=== PATIENT | male | born 1955 | race Caucasian/White ===

== ENCOUNTER 2023-03-22 06:00 | Observation (INO) | payer OTHER ==
[2023-03-22] VITALS (7 sets, daily range): BP systolic 100–135; BP diastolic 55–81; PULSE 59–74; TEMP 97.4–98
[~2023-03-22] VITALS: Ht 177.8 cm; Wt 111.3 kg
--- NOTE | 2023-03-22 09:50 | NUR ---
PT ADMITTED FROM ED FOR SYNCOPE AND AFIB. PT CONVERTED TO SR IN ED. PT IS AXOX3. PT IS ON RA. PT'S VSS. PT SHOWING SR IN THE 70S ON TELE. PT ORIENTED TO ROOM AND FLOOR. CALL LIGHT GIVEN AND ISNTRUCTED TO CALL WITH ALL NEEDS. 1015-CT ORDERED PER DUE TO ELEVATED D-DIMER. CARDIOLOGY CONSULTED. NOTIFIED. CT CALLED. 1100-FAMILY BEDSIDE. TO TAKE PTS MEDICATIONS HOME.
[2023-03-22] MEDS ORDERED: FLOMAX 0.40.4 MG/CAP PO (10:53)
[2023-03-22] MEDS ORDERED: NORVASC 5MG5 MG/TAB PO (10:53)
[2023-03-22] MEDS ORDERED: COZAAR100 MG PO (10:53)
[2023-03-22] MEDS ORDERED: LIPITOR 10MG10 MG PO (10:57)
[2023-03-22 11:27] LABS: ALANINE AMINOTRANSFERASE 33 U/L (0-55); ALBUMIN 3.6 gm/dL (3.4-4.8); ALKALINE PHOSPHATASE 62 U/L (40-150); ANION GAP 13 mmol/L (7-16); AST,SGOT 72 U/L (5-34); BILIRUBIN,TOTAL 1.1 mg/dL (0.2-1.2); BLOOD UREA NITROGEN 33 mg/dL (8-26); CALCIUM 8.8 mg/dL (8.4-10.2); CARBON DIOXIDE 18 mmol/L (23-31); CHLORIDE 109 mmol/L (98-107); CREATININE, serum 1.34 mg/dL (0.72-1.25); GLUCOSE 176 mg/dL (70-99); MAGNESIUM 2.1 mg/dL (1.6-2.6); POTASSIUM 3.6 mmol/L (3.5-4.5); SODIUM 140 mmol/L (136-145); TOTAL PROTEIN 6.4 gm/dL (6.2-8.1)
[2023-03-22 11:28] LABS: THYROID STIMULATING HORMONE 2.168 uIU/mL (0.350-4.940)
[2023-03-22 11:31] LABS: TROPONIN-I < 0.010 ng/mL (0.00-0.033)
[2023-03-22 12:00] LABS: BASO # 0.1 K/mm3 (0.0-0.2); BASO % 0.6 % (0.0-2.0); EOS # 0.2 K/mm3 (0.0-0.7); EOS % 2.6 % (0.0-4.0); GRAN # 4.8 K/mm3 (1.4-6.5); GRAN % 59.6 % (42.2-75.2); HEMATOCRIT 43.7 % (42.0-52.0); HEMOGLOBIN 15.2 g/dl (13.5-18.0); LYMPH # 2.1 K/mm3 (1.2-3.4); LYMPH % 26.7 % (20.0-51.0); MEAN CELL VOLUME 87 fl (80.0-100.0); MEAN CORPUSCULAR HEMOGLOBIN 30 pg (27-31); MEAN CORPUSCULAR HGB CONC 35 g/dl (33.0-37.0); MEAN PLATELET VOLUME 9.9 fl (7.4-10.4); MONO # 0.8 K/mm3 (0.1-0.6); MONO % 10.2 % (1.7-9.3); PLATELET COUNT 219 K/mm3 (130-400); RED BLOOD COUNT 5.04 M/mm3 (4.20-5.60); REDCELL DISTRIBUTION WIDTH-CV 12.9 % (11.5-14.5)
[2023-03-22 12:01] LABS: INR 1.1 (0.8-3.0); PARTIAL THROMBOPLASTIN TIME 28.3 SECONDS (26.0-37.0); PROTHROMBIN TIME 11.8 SECONDS (9.7-12.8)
[2023-03-22 12:08] LABS: COLLECTION METHOD CLEAN CATCH
[2023-03-22 12:25] LABS: URINE APPEARANCE Clear (CLEAR/HAZY); URINE COLOR Yellow (YELLOW); URINE GLUCOSE Negative (NEGATIVE); URINE KETONE 1+ (NEGATIVE); URINE NITRATE Negative (NEGATIVE); URINE PROTEIN(semi-quant) Negative (NEGATIVE); URINE UROBILINOGEN 0.2 E.U/dL (0.2-1.0)
[2023-03-22 12:26] LABS: MUCOUS Present (NOT PRESENT); SQUAMOUS EPITHELIAL 0-2 /hpf (0-10); URINE BACTERIA Rare /hpf (NONE SEEN); URINE BLOOD Negative (NEGATIVE); URINE RBC None Seen /hpf (0-2)
--- NOTE | 2023-03-22 19:46 | NUR ---
Patient awake, alert and oriented. Denies pain, shortness of breath, dizziness, or weakness. States he has been walking the halls and feels good. Educated on NPO status at midnight in preparation for lexiscan and loop recorder placement tomorrow. Denies additional needs at this time. Sitting in chair, call light within reach.
[2023-03-23] VITALS (18 sets, daily range): BP systolic 100–153; BP diastolic 65–96; PULSE 54–84; TEMP 97.5–98.5
--- NOTE | 2023-03-23 06:31 | NUR ---
Pt had fairly uneventful night. At the beginning of the shift had several episodes of trying to transfer from bed to chair or chair to bed without staff present, bed/chair alarm activated, nursing staff assisted in transfers safely. x1 assist with walker. Was able to rest throughout the night, only c/o discomfort in open area on right back thigh. Able to tolerate medications with applesauce, no coughing/signs of aspiration post swallow. Bed in lowest position with bed alarm on, call light within reach.
[2023-03-23 06:32] LABS: BASO % 0.5 % (0.0-2.0); EOS # 0.2 K/mm3 (0.0-0.7); EOS % 2.6 % (0.0-4.0); GRAN # 4.6 K/mm3 (1.4-6.5); GRAN % 62.9 % (42.2-75.2); HEMATOCRIT 40.9 % (42.0-52.0); HEMOGLOBIN 14.4 g/dl (13.5-18.0); LYMPH # 1.8 K/mm3 (1.2-3.4); LYMPH % 24.3 % (20.0-51.0); MEAN CELL VOLUME 86 fl (80.0-100.0); MEAN CORPUSCULAR HEMOGLOBIN 30 pg (27-31); MEAN CORPUSCULAR HGB CONC 35 g/dl (33.0-37.0); MONO # 0.7 K/mm3 (0.1-0.6); MONO % 9.4 % (1.7-9.3); PLATELET COUNT 212 K/mm3 (130-400); RED BLOOD COUNT 4.75 M/mm3 (4.20-5.60); REDCELL DISTRIBUTION WIDTH-CV 12.8 % (11.5-14.5)
[2023-03-23 06:37] LABS: CALCIUM 8.7 mg/dL (8.4-10.2); CHOLESTEROL RISK RATIO 3.8; CREATININE, serum 0.98 mg/dL (0.72-1.25)
--- NOTE | 2023-03-23 08:35 | NUR ---
PT TAKEN DOWN TO [facility] FOR STRESS TEST. THEN WILL GO TO DIRECTOR OF HOUSING FOR LOOP RECORDER PLACEMENT.
--- NOTE | 2023-03-23 15:20 | NUR ---
SW met with pt's , Theresa @ the bedside this morning for inital intake. Pt was away in a procedure. He was admitted for AFIB mgtment and plans to return home after his hospitalization. Pt lives with his of 35 yrs in his own home in [place]. According to his , pt is independent in his ADL's/IADL's and ambulatory without assistive devices. He currently works fulltime @ [employer]. His primary care provider is is ANTIONE Cruz, ph# [phone] and pharmacy is [facility]. Pt also has a son, Kelvin, who also resides in [place]. No other concerns noted.
--- NOTE | 2023-03-23 15:40 | NUR ---
1400-FELICIANO RN WITH CARDIOLOGY CALLED THIS RN AND INFORMED THAT PTS MARINA SCAN WAS NEGATIVE. OKAY FOR PT TO EAT. NOTIFIED. 1500-FELICIANO RN WITH CARDIOLOGY CALLED AND ASKED REGARDING SOTALOL DOSING AND WHEN PT IS ABLE TO DC. STATES SHE WILL DISCUSS WITH AND CALL BACK. 1515-FELICIANO RN WITH CARDIOLOGY CALLED THIS RN AND STATES PT IS TO STAY UNTIL TOMORROW PER DUE TO NEW SOTALOL. 1530-PT AND FAMILY UPDATED ON ABOVE. 1540- REQUEST THAT FLONASE AND ZYRTEC BE SCHEUDULED AT BEDTIME. FELICIANO PHARMACIST CALLED AND WILL CAHNGE.
--- NOTE | 2023-03-23 19:20 | NUR ---
Patient awake, alert and oriented. Feeling good after lexiscan and loop recorder placement today. Dressing on chest clean, dry and intact. Denies pain, shortness of breath, nausea or dizziness. Ambulating in the hallway, steady on feet. Sitting in chair, call light within reach. Denies further needs at this time.
[2023-03-24 03:46] VITALS: BP 113/67; PULSE 58; TEMP 98.7
[2023-03-24 03:57] VITALS: BP_SYST 113
[2023-03-24 06:01] LABS: BASO # 0.1 K/mm3 (0.0-0.2); BASO % 0.7 % (0.0-2.0); EOS # 0.2 K/mm3 (0.0-0.7); EOS % 2.2 % (0.0-4.0); GRAN # 3.6 K/mm3 (1.4-6.5); GRAN % 54.3 % (42.2-75.2); HEMATOCRIT 41.8 % (42.0-52.0); HEMOGLOBIN 14.6 g/dl (13.5-18.0); LYMPH # 2.1 K/mm3 (1.2-3.4); LYMPH % 31.9 % (20.0-51.0); MEAN CELL VOLUME 86 fl (80.0-100.0); MEAN CORPUSCULAR HEMOGLOBIN 30 pg (27-31); MEAN CORPUSCULAR HGB CONC 35 g/dl (33.0-37.0); MONO # 0.7 K/mm3 (0.1-0.6); MONO % 10.8 % (1.7-9.3); PLATELET COUNT 217 K/mm3 (130-400); RED BLOOD COUNT 4.85 M/mm3 (4.20-5.60); REDCELL DISTRIBUTION WIDTH-CV 12.8 % (11.5-14.5)
[2023-03-24 06:27] LABS: CALCIUM 8.6 mg/dL (8.4-10.2); CREATININE, serum 1.07 mg/dL (0.72-1.25); POTASSIUM 4.6 mmol/L (3.5-4.5)
[2023-03-24 07:19] VITALS: BP 117/71; PULSE 57; TEMP 98
--- NOTE | 2023-03-24 08:40 | NUR ---
Patient is in the chair, alert and oriented x4, VSS, states no chest pain, lightheadness or any discomfort. Assessment completed, meds provided. No further needs at this time. Call light within reach.
[2023-03-24 08:44] VITALS: BP_SYST 117
--- NOTE | 2023-03-24 10:23 | NUR ---
Initial visit; Patient thanked Reaming Machine Operator for looking in on him and offering God's blessings. Patient states he will be "going home" today and is pleased about that.
[2023-03-24] MEDS ORDERED: ELIQUIS 5MG PO (10:28)
[2023-03-24] MEDS ORDERED: CEPHALEXIN500 M1 PO (10:28)
[2023-03-24] MEDS ORDERED: BETAPACE 80MG80 MG PO (10:29)
[2023-03-24] MEDS ORDERED: FLONASE NASAL S16 GM NS (10:58)
[2023-03-24] MEDS ORDERED: ZYRTEC 10MG10 MG PO (10:58)
[2023-03-24 11:13] VITALS: BP 104/69; PULSE 57; TEMP 98.1
[2023-03-24 12:30] VITALS: BP_SYST 104
--- NOTE | 2023-03-24 13:02 | NUR ---
Patient was provided with discharge information, all questions answered. IV access and telemetry were discontinued. Pt waiting for to pick him up.
== END 2023-03-24 14:00 | disposition home or self-care (01) ==
LOC: COL.ER 06:00 → MEDICAL 09:35
PROVIDERS: ADMIT Internal Medicine
DX: I48.91 Unspecified atrial fibrillation (principal); R55 Syncope and collapse; R79.1 Abnormal coagulation profile; I10 Essential (primary) hypertension; E78.5 Hyperlipidemia, unspecified; N40.0 Benign prostatic hyperplasia without lower urinary tract symptoms; R91.1 Solitary pulmonary nodule; R06.83 Snoring; J30.2 Other seasonal allergic rhinitis; R73.03 Prediabetes; Z79.899 Other long term (current) drug therapy
CPT/HCPCS: A9500-JZ; G0378; J2785; J7040

== ENCOUNTER 2023-06-25 05:47 | Day surgery (SDC) | payer OTHER ==
[~2023-06-25] VITALS: Ht 177.8 cm; Wt 113.0 kg
[~2023-06-25 05:47] MED LIST: BETAPACE 80MG80 MG PO; CEPHALEXIN500 M1 PO; COZAAR100 MG PO; ELIQUIS 5MG PO; FLOMAX 0.40.4 MG/CAP PO; FLONASE NASAL S16 GM NS; LIPITOR 10MG10 MG PO; NORVASC 5MG5 MG/TAB PO; ZYRTEC 10MG10 MG PO
[2023-06-25] MEDS ORDERED: NORVASC 5MG5 MG/TAB PO (06:10)
[2023-06-25 06:40] VITALS: BP 123/93; PULSE 75; TEMP 97.2
[2023-06-25 07:45] VITALS: BP 106/75; PULSE 70; TEMP 97.2
[2023-06-25 08:00] VITALS: BP 115/86; PULSE 64
--- NOTE | 2023-06-25 08:20 | NUR ---
0745 RETURNS TO ROOM 3 PER CART. AWAKE, ALERT. RESP UNLABORED. AMBULATES TO RECLINER WITH STANDBY ASSIST. DENIES NAUSEA OR ABD PAIN. VITAL SIGNS OBTAINED. CALL LIGHT AT SIDE, IN ROOM. 0753 TOLERATES PO WATER WITHOUT NAUSEA. DISCHARGE INSTRUCTIONS REVIEWED. PATIENT VERBALIZES UNDERSTANDING. COPY PROVIDED IN DISCHARGE FOLDER 0800 DR CORLEY HERE TO VISIT WITH PATIENT 0815 DRESSES SELF
== END 2023-06-25 08:22 | disposition home or self-care (01) ==
LOC: SDCO 05:47
DX: Z12.11 Encounter for screening for malignant neoplasm of colon (principal); K57.30 Diverticulosis of large intestine without perforation or abscess without bleeding
CPT/HCPCS: J2704; J7120

== ENCOUNTER → 2023-09-07 | Outpatient (CLI) | payer OTHER ==
[~2023-09-07] MED LIST changes: +Iohexol 300 - 100 ML VIAL IV ONE; +NS 100 ML IV SCH
== END ==
LOC: COL.RAD 08:10
DX: R91.8 Other nonspecific abnormal finding of lung field (principal); R59.9 Enlarged lymph nodes, unspecified; K86.89 Other specified diseases of pancreas
CPT/HCPCS: Q9967